=== PATIENT | male | born 1960 | race Caucasian/White ===

== ENCOUNTER → 2023-05-27 19:00 | Outpatient (REF) | payer MEDICARE, OTHER, SELFPAY | LOC: MRI 19:00 | PROVIDERS: ATTENDING PHYSICIAN Psychiatry & Neurology Neurology; FAMILY PHYSICIAN Family Medicine | DX: D33.2 Benign neoplasm of brain, unspecified (principal) | CPT/HCPCS: 70553; A9575 ==

== ENCOUNTER → 2023-12-01 10:38 | Outpatient (REF) | payer MEDICARE, SELFPAY | LOC: HWRAD 10:38 | PROVIDERS: ATTENDING PHYSICIAN Family Medicine | DX: Z87.891 Personal history of nicotine dependence (principal) | CPT/HCPCS: 71271 ==

== ENCOUNTER → 2024-06-14 10:45 | Outpatient (REF) | payer MEDICARE, SELFPAY | LOC: RAD 10:45 | PROVIDERS: ATTENDING PHYSICIAN Family Medicine; OTHER PHYSICIAN Psychiatry & Neurology Neurology | DX: Z72.0 Tobacco use (principal) | CPT/HCPCS: 76770 ==